=== PATIENT | female | born 2000 | race Hispanic/Latino ===

== ENCOUNTER 2022-10-28 13:27 | Inpatient (IN) | payer OTHER ==
[2022-10-28] MEDS ORDERED: Methylergonovine 0.2 MG/ML VIAL IM PRN ×2 (13:29→20:22)
[2022-10-28] MEDS ORDERED: Ibuprofen 800 MG TAB PO PRN (13:29)
[2022-10-28] MEDS ORDERED: Misoprostol 200 MCG TAB PR PRN (13:29)
[2022-10-28] MEDS ORDERED: Ondansetron PF 4 MG/2 ML Vial IVP PRN ×3 (13:29→20:22)
[2022-10-28] MEDS ORDERED: Tranexamic Acid 1,000 MG in Sodium Chloride 0.9% 250 ML 250 ML IVPB PRN (13:29)
[2022-10-28] MEDS ORDERED: Lidocaine 1% (PF) 30 ML VIAL SC PRN (13:29)
[2022-10-28] MEDS ORDERED: Promethazine HCl 25 MG/ML VIAL IM PRN ×3 (13:29→20:22)
[2022-10-28] MEDS ORDERED: hydrALAZINE 20 MG/ML VIAL SLOW IVP PRN ×2 (13:29→20:22)
[2022-10-28] MEDS ORDERED: Diphenoxylate HCl/Atropine Tablet PO PRN (13:29)
[2022-10-28] MEDS ORDERED: Carboprost 250 MCG/ML AMP IM PRN (13:29)
[2022-10-28] MEDS ORDERED: Penicillin G 2.5 MILL.units 2.5 MILL.UNITS in Premix Bag 1 BAG IVPB SCH (13:30)
[2022-10-28] MEDS ORDERED: Lactated Ringer's 1,000 ML IV SCH (13:30)
[2022-10-28] MEDS ORDERED: Penicillin G Potassium 5 MILL.UNITS in Sodium Chloride 0.9% 100 ML IVPB SCH (13:30)
[2022-10-28] MEDS ORDERED: NS w/ Oxytocin 30 units 500 ML IV SCH ×3 (13:30→20:22)
[2022-10-28] MEDS ORDERED: Fentanyl 2 mcg/Bup 0.1% Cadd 100 ML ONE (13:49)
[2022-10-28 14:01] LABS: Hemoglobin 15.2 g/dL (12.0-15.5); Mean Corpuscular Hemoglobin 32.1 pg (27.0-33.0); Mean Corpuscular Volume 89.2 fl (81.6-98.3); Mean Platelet Volume 10.7 fl (7.4-10.4); Platelet Count 267 10x3/uL (150-450); RBC Distribution Width 13.7 % (11.5-14.5); Red Blood Cell (RBC) Count 4.73 10x6/uL (3.90-5.03); White Blood Cell (WBC) Count 10.4 10x3/uL (3.5-10.5)
[2022-10-28 14:33] LABS: HBSAg Index 0.15 S/CO (0-0.99); Hep B Surf Ag Non-Reactive S/CO (NonReactive)
[2022-10-28 14:34] LABS: Syphilis Antibody Nonreactive (Nonreactive); Syphilis Antibody Index 0.04 S/CO (<1.00 Non-Reactive)
[2022-10-28 14:41] VITALS: BMI 31.8
[2022-10-28] MEDS ORDERED: Lactated Ringer's 500 ML IV PRN (14:55)
[2022-10-28] MEDS ORDERED: ePHEDrine Sulfate 50 MG/10 ML VIAL SLOW IVP PRN (14:55)
[2022-10-28] MEDS ORDERED: Moisturizing Cream (Eucerin) 113 GM JAR TOP PRN (14:55)
[2022-10-28] MEDS ORDERED: diphenhydrAMINE 50 MG/ML VIAL IVP PRN (14:55)
[2022-10-28] MEDS ORDERED: Naloxone HCl 0.4 mg/ml Vial IVP PRN ×2 (14:55)
[2022-10-28] MEDS ORDERED: Acetaminophen 325 MG TAB PO PRN (14:55)
[2022-10-28] MEDS ORDERED: Communication Order-Pharmacy FS SCH (15:00)
[2022-10-28] MEDS ORDERED: Fentanyl 2 mcg/Bupivacaine 0.1% Cassette 100 ML EPIDURAL SCH (15:00)
[2022-10-28] MEDS ORDERED: Milk Of Magnesia 30 ML UDCUP PO PRN (20:22)
[2022-10-28] MEDS ORDERED: Bisacodyl 10 MG SUPP PR PRN (20:22)
[2022-10-28] MEDS ORDERED: Misoprostol 200 MCG TAB VAG PRN (20:22)
[2022-10-28] MEDS ORDERED: Lanolin Ointment 7 GM TUBE TOP PRN (20:22)
[2022-10-28] MEDS ORDERED: Benzocaine-Menthol 82.5 ML CAN TOP PRN (20:22)
[2022-10-28] MEDS ORDERED: Boostrix 0.5 ML (Tdap) VIAL (>/=7 yrs of age) IM ONE (20:22)
[2022-10-28] MEDS: Ibuprofen 800 MG TAB PO SCH (21:59)
[2022-10-28] MEDS: Docusate 100 MG CAP PO SCH (21:59)
[2022-10-29] MEDS: Ibuprofen 800 MG TAB PO SCH ×3 (05:24→21:09)
[2022-10-29] MEDS: Ferrous Sulfate 325 MG TAB PO SCH (07:24)
[2022-10-29] MEDS: Prenatal Vitamin 1 TAB PO SCH (07:45)
[2022-10-29] MEDS: Docusate 100 MG CAP PO SCH ×2 (07:45→21:09)
[2022-10-29] MEDS ORDERED: Morphine 4 MG/ML VIAL SLOW IVP SCH (20:45)
[2022-10-30] MEDS: Ibuprofen 800 MG TAB PO SCH ×2 (05:35→14:10)
[2022-10-30] MEDS: Ferrous Sulfate 325 MG TAB PO SCH ×2 (06:56→06:57)
[2022-10-30 07:46] VITALS: BP 119/76; TEMP 98.3
[2022-10-30] MEDS: Prenatal Vitamin 1 TAB PO SCH (08:22)
[2022-10-30] MEDS: Docusate 100 MG CAP PO SCH (08:22)
== END 2022-10-30 16:45 | disposition home or self-care (01) | DRG 807 ==
LOC: CSHLD 13:27 → CSHPP 19:58
PROVIDERS: ADMIT Obstetrics & Gynecology; ATTEND Obstetrics & Gynecology
PROC: 10E0XZZ Delivery of Products of Conception, External Approach (ICD-10-PCS; principal; 2022-10-28)
DX: O99.824 Streptococcus B carrier state complicating childbirth (principal); Z37.0 Single live birth; Z3A.38 38 weeks gestation of pregnancy; O69.81X0 Labor and delivery complicated by cord around neck, without compression, not applicable or unspecified
CPT/HCPCS: 36415; 85027; 86780; 86850; 86900; 86901; 87340

== ENCOUNTER 2023-04-18 19:43 | Inpatient (IN) | payer OTHER ==
[2023-04-18 20:25] VITALS: BMI 27.4
[2023-04-18] MEDS ORDERED: Acetaminophen 500 MG TAB PO PRN (20:57)
[2023-04-18] MEDS ORDERED: hydrALAZINE 20 MG/ML VIAL SLOW IVP PRN (20:57)
[2023-04-18] MEDS ORDERED: Ondansetron PF 4 MG/2 ML Vial IVP PRN (20:57)
[2023-04-18] MEDS ORDERED: Promethazine HCl 25 MG/ML VIAL IM PRN (20:57)
[2023-04-18] MEDS ORDERED: Lactated Ringer's 1,000 ML IV SCH (21:00)
[2023-04-18] MEDS ORDERED: NS w/ Oxytocin 30 units 500 ML IV SCH (21:00)
[2023-04-18] MEDS: Sodium Chloride 0.9% 1,000 ML IV SCH (21:26)
[2023-04-19] MEDS: Sodium Chloride 0.9% 1,000 ML IV SCH ×2 (05:07→14:17)
[2023-04-19] MEDS ORDERED: Potassium Chloride 20 MEQ TAB PO SCH (08:00)
[2023-04-19 08:11] LABS: #Monocytes 0.8 10x3/uL (0.0-1.1); #Neutrophils 7.2 10x3/uL (1.5-8.4); %Basophils 0.3 % (0.0-2.0); %Eosinophils 0.1 % (0.0-6.0); %Lymphocytes 8.3 % (18.0-47.0); %Monocytes 9.4 % (0.0-10.0); %Neutrophils 81.1 % (40.0-75.0); Hemoglobin 10.7 g/dL (12.0-15.5); Mean Corpuscular Volume 88.7 fl (81.6-98.3); Mean Platelet Volume 10.4 fl (7.4-10.4); Platelet Count 160 10x3/uL (150-450); RBC Distribution Width 13.3 % (11.5-14.5); Red Blood Cell (RBC) Count 3.45 10x6/uL (3.90-5.03); White Blood Cell (WBC) Count 8.9 10x3/uL (3.5-10.5)
[2023-04-19 08:31] LABS: ALT (SGPT) 13 U/L (8-55); AST (SGOT) 18 U/L (5-34); Albumin 2.4 g/dL (3.5-5.0); Alkaline Phosphatase 85 U/L (40-100); Anion Gap 13 mmol/L (10-20); BUN (Urea Nitrogen) 4 mg/dL (7.0-18.7); Bilirubin, Total 0.8 mg/dL (0.2-1.2); Calc. Creatinine Clearance 137 mL/min (70-130); Carbon Dioxide 18 mmol/L (22-29); Chloride 107 mmol/L (98-107); Estimated GFR 130; Globulin 2.6 g/dL (2.4-3.5); Glucose 102 mg/dL (70-105); Sodium 135 mmol/L (136-145)
[2023-04-19] MEDS ORDERED: cefTRIAXone\\ROCEPHIN 1 GM in Sodium Chloride 0.9% 100 ML IVPB SCH (16:00)
[2023-04-20 08:59] VITALS: BP 98/54; TEMP 97.3
== END 2023-04-20 10:20 | disposition home or self-care (01) | DRG 833 ==
LOC: INTOOBSV 19:43 → CSHPED 19:43 → UNDOADMOB 19:43 → OBSVTOIN 19:43 → CSHPED 04-19 00:35 → OBSVTOIN 04-19 00:35
PROVIDERS: ADMIT Obstetrics & Gynecology; ATTEND Obstetrics & Gynecology
DX: O23.02 Infections of kidney in pregnancy, second trimester (principal); Z3A.18 18 weeks gestation of pregnancy; E87.6 Hypokalemia; O99.012 Anemia complicating pregnancy, second trimester; D64.9 Anemia, unspecified; O99.282 Endocrine, nutritional and metabolic diseases complicating pregnancy, second trimester
CPT/HCPCS: 36415; 71045; 76815; 80053; 81001; 81025; 83605; 84702; 85025; 87040; 87077; 87086; 87186; 96365; G0378; J0696; J3490; J7050

== ENCOUNTER 2023-09-15 21:36 | Inpatient (IN) | payer MEDICAID, OTHER ==
[2023-09-15 21:54] VITALS: BMI 31.8
[2023-09-15] MEDS ORDERED: Penicillin G Potassium 5 MILL.UNITS VIAL ONE (22:27)
[2023-09-15] MEDS ORDERED: fentaNYL 50 mcg/mL 1 mL Vial SLOW IVP PRN (22:44)
[2023-09-15] MEDS ORDERED: Tranexamic Acid 1,000 MG/10 ML VIAL IVP PRN (22:44)
[2023-09-15] MEDS ORDERED: hydrALAZINE 20 MG/ML VIAL SLOW IVP PRN (22:45)
[2023-09-15] MEDS ORDERED: Promethazine HCl 25 MG/ML VIAL IM PRN (22:45)
[2023-09-15] MEDS ORDERED: Misoprostol 200 MCG TAB RC PRN (22:45)
[2023-09-15] MEDS ORDERED: Acetaminophen 500 MG TAB PO PRN (22:45)
[2023-09-15] MEDS ORDERED: Ibuprofen 800 MG TAB PO PRN (22:45)
[2023-09-15] MEDS ORDERED: Methylergonovine 0.2 MG/ML VIAL IM PRN (22:45)
[2023-09-15] MEDS ORDERED: Penicillin G Potassium 5 MILL.UNITS in Sodium Chloride 0.9% 100 ML IVPB SCH (22:45)
[2023-09-15] MEDS ORDERED: Lidocaine 1% (PF) 30 ML VIAL SC PRN (22:45)
[2023-09-15] MEDS ORDERED: Carboprost 250 MCG/ML AMP IM PRN (22:45)
[2023-09-15] MEDS ORDERED: Ondansetron PF 4 MG/2 ML Vial IVP PRN (22:45)
[2023-09-15] MEDS ORDERED: Lactated Ringer's 1,000 ML IV SCH (22:45)
[2023-09-15 22:50] LABS: Hematocrit 37.5 % (34.9-44.5); Mean Corpuscular Hemoglobin 26.4 pg (27.0-33.0); Mean Corpuscular Volume 82.6 fl (81.6-98.3); Mean Platelet Volume 10.5 fl (7.4-10.4); Platelet Count 254 10x3/uL (150-450); RBC Distribution Width 15.9 % (11.5-14.5); Red Blood Cell (RBC) Count 4.54 10x6/uL (3.90-5.03); White Blood Cell (WBC) Count 9.4 10x3/uL (3.5-10.5)
[2023-09-15 23:33] LABS: HBSAg Index 0.16 S/CO (0-0.99); Hep B Surf Ag - L&D Non-Reactive S/CO (NonReactive)
[2023-09-15 23:38] LABS: Syphilis Antibody Nonreactive (Nonreactive); Syphilis Antibody Index 0.03 S/CO (<1.00 Non-Reactive)
[2023-09-15] MEDS ORDERED: fentaNYL/Ropivacaine Epidural 100 ML ONE (23:56)
[2023-09-16] MEDS ORDERED: Ondansetron PF 4 MG/2 ML Vial IVP PRN ×2 (00:37→09:24)
[2023-09-16] MEDS ORDERED: ePHEDrine Sulfate 50 MG/10 ML VIAL SLOW IVP PRN (00:37)
[2023-09-16] MEDS ORDERED: Moisturizing Cream (Eucerin) 113 GM JAR TOP PRN (00:37)
[2023-09-16] MEDS ORDERED: diphenhydrAMINE 50 MG/ML VIAL IVP PRN (00:37)
[2023-09-16] MEDS ORDERED: Promethazine HCl 25 MG/ML VIAL IM PRN ×2 (00:37→09:24)
[2023-09-16] MEDS ORDERED: Lactated Ringer's 500 ML IV PRN (00:37)
[2023-09-16] MEDS ORDERED: Naloxone HCl 0.4 mg/ml Vial IVP PRN ×2 (00:37)
[2023-09-16] MEDS ORDERED: Acetaminophen 325 MG TAB PO PRN (00:37)
[2023-09-16] MEDS ORDERED: Communication Order-Pharmacy FS SCH (00:45)
[2023-09-16] MEDS ORDERED: fentaNYL 2 mcg/Ropivacaine 0.2% Epidural 100 ML CADD EPIDURAL SCH (00:45)
[2023-09-16] MEDS ORDERED: Penicillin G 2.5 MILL.units 2.5 MILL.UNITS in Premix 1 BAG IVPB SCH (03:00)
[2023-09-16] MEDS ORDERED: Oxytocin 30 units/NS 500 ML 500 ML ONE ×2 (06:38→07:24)
[2023-09-16] MEDS ORDERED: Hepatitis B Vaccine 10 MCG/0.5 ML SYR ONE (07:35)
[2023-09-16] MEDS ORDERED: Erythromycin Base 0.5% Oint 1 GM TUBE ONE (07:35)
[2023-09-16] MEDS ORDERED: Phytonadione Neonatal 1 MG/0.5 ML AMP ONE (07:35)
[2023-09-16] MEDS ORDERED: Oxytocin 30 units/NS 500 ML 500 ML IV SCH (08:47)
[2023-09-16] MEDS ORDERED: Boostrix 0.5 ML (Tdap) VIAL (>/=7 yrs of age) IM ONE (09:24)
[2023-09-16] MEDS ORDERED: Milk Of Magnesia 30 ML UDCUP PO PRN (09:24)
[2023-09-16] MEDS ORDERED: hydrALAZINE 20 MG/ML VIAL SLOW IVP PRN (09:24)
[2023-09-16] MEDS ORDERED: Bisacodyl 10 MG SUPP PR PRN (09:24)
[2023-09-16] MEDS ORDERED: diphenhydrAMINE 25 MG CAP PO PRN (09:24)
[2023-09-16] MEDS ORDERED: Benzocaine-Menthol 82.5 ML CAN TOP PRN (09:24)
[2023-09-16] MEDS ORDERED: Preparation H Ointment 28 GM TUBE PR PRN (09:24)
[2023-09-16] MEDS ORDERED: Prenatal Vitamin 1 TAB PO SCH (10:00)
[2023-09-16] MEDS ORDERED: Ferrous Sulfate 325 MG TAB PO SCH ×2 (10:00)
[2023-09-16] MEDS: HYDROcodone/Acetaminophen 5/325 mg Tablet PO PRN (15:25)
[2023-09-16] MEDS: Ibuprofen 800 MG TAB PO SCH (17:55)
[2023-09-16] MEDS: Ferrous Sulfate 325 MG TAB PO SCH (17:56)
[2023-09-16] MEDS: Docusate 100 MG CAP PO SCH (21:09)
[2023-09-17] MEDS: HYDROcodone/Acetaminophen 5/325 mg Tablet PO PRN (00:23)
[2023-09-17] MEDS: Ibuprofen 800 MG TAB PO SCH ×4 (00:24→15:19)
[2023-09-17 07:41] VITALS: BP 95/51; TEMP 97.7
[2023-09-17] MEDS: Ferrous Sulfate 325 MG TAB PO SCH ×2 (07:54→16:41)
[2023-09-17] MEDS: Docusate 100 MG CAP PO SCH (07:55)
[2023-09-17] MEDS ORDERED: Prenatal Vitamin 1 TAB PO SCH (09:00)
== END 2023-09-17 18:00 | disposition home or self-care (01) | DRG 807 ==
LOC: CSHLD/OP 21:36 → CSHLD 22:15 → CSHPP 09-16 09:20
PROVIDERS: ADMIT Family Medicine; ATTEND Family Medicine
PROC: 10E0XZZ Delivery of Products of Conception, External Approach (ICD-10-PCS; principal; 2023-09-16)
PROC: 10907ZC Drainage of Amniotic Fluid, Therapeutic from Products of Conception, Via Natural or Artificial Opening (ICD-10-PCS; 2023-09-16)
PROC: 3E033XZ Introduction of Vasopressor into Peripheral Vein, Percutaneous Approach (ICD-10-PCS; 2023-09-16)
DX: O99.824 Streptococcus B carrier state complicating childbirth (principal); Z37.0 Single live birth; Z3A.39 39 weeks gestation of pregnancy
CPT/HCPCS: 51702; 85027; 86780; 86850; 86900; 86901; 87340; 99285; J2540; J2590